=== PATIENT | female | born 1965 | race African-American/Black ===

== ENCOUNTER 2017-10-12 21:26 | Emergency (ER) | payer OTHER ==
[~2017-10-12] VITALS: Ht 162.6 cm; Wt 87.1 kg
[~2017-10-12 21:26] MED LIST: NOHOMEMEDICATIONS
[2017-10-12] MEDS ORDERED: AMLODIPINE-OLM1 EACH PO (21:38)
[2017-10-12] MEDS ORDERED: LIDODERM1 EACH TRANSDERM (21:39)
[2017-10-12 21:50] LABS: URINE BILIRUBIN NEGATIVE (Negative); URINE BLOOD NEGATIVE (Negative); URINE CLARITY CLEAR; URINE COLOR YELLOW; URINE GLUCOSE-RANDOM* NEGATIVE (Negative); URINE KETONES NEGATIVE (Negative); URINE LEUKOCYTES-REFLEX NEGATIVE (Negative); URINE NITRITE-REFLEX NEGATIVE (Negative); URINE PROTEIN (DIPSTICK) NEGATIVE (Negative); URINE SPECIFIC GRAVITY <= 1.005 (1.005-1.035); URINE UROBILINOGEN 0.2 E.U./dl (0.2-1.0)
[2017-10-12 22:51] LABS: ABSOLUTE NEUTROPHILS 3.4 thou/uL (1.4-8.2); BASOPHILS 0.6 % (0.0-2.0); EOSINOPHILS 1.7 % (0.0-3.0); HEMATOCRIT 36.2 % (37.0-47.0); HEMOGLOBIN 12.2 gm/dL (12.0-15.0); LYMPHOCYTES 37.4 % (24.0-44.0); MCHC 33.6 g/dL (28.0-37.0); MCV 86.3 fL (80.0-100.0); PLATELET COUNT 283 thou/uL (150-400); POLYS 52.3 % (36.0-66.0); RDW 13.8 % (10.5-14.5); WBC 6.5 thou/uL (4.0-11.0)
[2017-10-12 23:00] LABS: CALCIUM 8.8 mg/dL (8.5-10.1); CREATININE 0.5 mg/dL (0.6-1.0)
[2017-10-12 23:01] LABS: POTASSIUM 3.7 mmol/L (3.5-5.1)
[2017-10-12] MEDS ORDERED: MOBIC15 MG PO (23:01)
[2017-10-12 23:11] VITALS: BP 168/71
== END 2017-10-12 23:14 | disposition home or self-care (01) ==
LOC: ER 21:26
PROVIDERS: Nurse Practitioner
DX: I88.0 Nonspecific mesenteric lymphadenitis (principal); R51 Headache; R35.0 Frequency of micturition; I10 Essential (primary) hypertension; Z87.891 Personal history of nicotine dependence

== ENCOUNTER 2018-07-13 11:56 | Emergency (ER) | payer BC, OTHER ==
[~2018-07-13] VITALS: Ht 162.6 cm; Wt 69.0 kg
[~2018-07-13 11:56] MED LIST changes: +AMLODIPINE-OLM1 EACH PO; +LIDODERM1 EACH TRANSDERM; +MOBIC15 MG PO
[2018-07-13 14:48] LABS: URINE BILIRUBIN NEGATIVE (Negative); URINE BLOOD 1+ (Negative); URINE CLARITY CLEAR; URINE COLOR YELLOW; URINE GLUCOSE-RANDOM* NEGATIVE (Negative); URINE KETONES NEGATIVE (Negative); URINE LEUKOCYTES-REFLEX NEGATIVE (Negative); URINE NITRITE-REFLEX NEGATIVE (Negative); URINE PROTEIN (DIPSTICK) NEGATIVE (Negative); URINE UROBILINOGEN 0.2 E.U./dl (0.2-1.0)
[2018-07-13 14:55] LABS: CALCIUM OXALATE >10 Many /LPF (None Seen); HYALINE CASTS 0-3 Few /LPF (None Seen); SQUAMOUS None Seen /LPF (0-3)
[2018-07-13 14:56] LABS: BACTERIA-REFLEX None Seen /HPF (None Seen); URINE RBC 3-10 Few /HPF (0-2); URINE WBC-REFLEX 0-5 Rare /HPF (0-5)
[2018-07-13 15:31] LABS: HEMATOCRIT 38.3 % (37.0-47.0); HEMOGLOBIN 12.7 gm/dL (12.0-15.0); MCH 28.7 pg (26.0-34.0); RBC 4.41 mil/uL (4.20-5.00); RDW 13.8 % (10.5-14.5); WBC 4.8 thou/uL (4.0-11.0)
[2018-07-13 15:54] LABS: CALCIUM 8.7 mg/dL (8.5-10.1); CREATININE 0.6 mg/dL (0.6-1.0); POTASSIUM 3.1 mmol/L (3.5-5.1)
[2018-07-13 15:58] LABS: ALBUMIN 3.6 g/dL (3.4-5.0); TOTAL BILIRUBIN 0.4 mg/dL (<0.1-1.0); TOTAL PROTEIN 7.6 g/dL (6.4-8.2)
[2018-07-13 18:18] VITALS: BP 148/67
--- NOTE | 2018-07-14 09:18 | EKG ---
[address] [address] ELECTROCARDIOGRAM REPORT Name: HERNANDEZ SILVA [id number] ������������������ Admission: 07/13/18 ������������������ Attend Phys: Discharge: 07/13/18 ������������������ Date of : 63 Report #: [id number] ����������������������������������������������������������������� [id number] THIS REPORT FOR: //name// [facility] ED Test Date: 2018-07-13 Test Time: 13:29:28 Pat Name: HERNANDEZ SILVA Department: Room: Gender: F Foreign Service Officer: BRISEIDA : 1965 Requested By: Olive Stokes Order Number: [id number] MD: Sam Pereira Measurements Intervals [place] Rate: 55 P: 45 [place]: 171 QRS: 39 QRSD: 96 T: 50 QT: 458 QTc: 438 Interpretive Statements Sinus bradycardia with arrhythmia Normal tracing Baseline wander in lead(s) V2 Compared to ECG 08/27/2012 22:25:30 Sinus bradycardia is now present Electronically Signed On 07-14-2018 9:18:04 SENIOR LANDSCAPE ARCHITECT by Sam Pereira [email or web address] ��������������������������������������������� <ELECTRONICALLY SIGNED> ���������������������������������������� By: Sam ePreira MD, [facility] ��������������������������������������������� 07/14/1818 1329 1329 Sam Pereira MD, FAC /EPI
== END 2018-07-13 18:19 | disposition home or self-care (01) ==
LOC: ER 11:56
PROVIDERS: Student in an Organized Health Care Education/Training Program
DX: N20.0 Calculus of kidney (principal); E87.6 Hypokalemia; R42 Dizziness and giddiness; I10 Essential (primary) hypertension; Z87.891 Personal history of nicotine dependence

== ENCOUNTER 2018-08-18 20:35 | Emergency (ER) | payer BC, OTHER ==
[~2018-08-18] VITALS: Ht 165.1 cm; Wt 83.5 kg
[2018-08-18] MEDS ORDERED: BENZOPRIL (20:40)
[2018-08-18 21:10] LABS: HEMATOCRIT 36.8 % (37.0-47.0); HEMOGLOBIN 12.3 gm/dL (12.0-15.0); MCH 28.7 pg (26.0-34.0); MCHC 33.3 g/dL (28.0-37.0); RBC 4.27 mil/uL (4.20-5.00); WBC 5.6 thou/uL (4.0-11.0)
[2018-08-18 21:21] LABS: ANION GAP 7 mmol/L (7-16); BUN 19 mg/dL (7-18); CHLORIDE 103 mmol/L (98-107); CO2 29 mmol/L (21-32); CREATININE 0.6 mg/dL (0.6-1.0); GLUCOSE 111 mg/dL (74-106); POTASSIUM 3.9 mmol/L (3.5-5.1); SODIUM 139 mmol/L (136-145)
[2018-08-18 21:29] LABS: ALBUMIN 3.5 g/dL (3.4-5.0); SGOT 16 U/L (15-37); SGPT 17 U/L (30-65); TOTAL BILIRUBIN 0.1 mg/dL (<0.1-1.0); TOTAL PROTEIN 7.6 g/dL (6.4-8.2); TROPONIN-I <0.06 ng/mL (<0.06)
[2018-08-18 22:12] LABS: URINE BILIRUBIN NEGATIVE (Negative); URINE BLOOD TRACE (Negative); URINE CLARITY CLEAR; URINE COLOR YELLOW; URINE GLUCOSE-RANDOM* NEGATIVE (Negative); URINE KETONES NEGATIVE (Negative); URINE LEUKOCYTES-REFLEX TRACE (Negative); URINE NITRITE-REFLEX NEGATIVE (Negative); URINE PROTEIN (DIPSTICK) NEGATIVE (Negative); URINE SPECIFIC GRAVITY 1.015 (1.005-1.035); URINE UROBILINOGEN 0.2 E.U./dl (0.2-1.0)
[2018-08-18 23:04] VITALS: BP 142/83
--- NOTE | 2018-08-19 08:32 | EKG ---
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 : 1965 Requested By: Olive Stokes Order Number: [id number] MD: Baudilio Florez Measurements Intervals [place] Rate: 76 P: 66 [place]: 160 QRS: 61 QRSD: 95 T: 58 QT: 410 QTc: 462 Interpretive Statements Sinus rhythm Probable left ventricular hypertrophy Compared to ECG 07/13/2018 13:29:28 Sinus bradycardia no longer present Electronically Signed On 08-19-2018 8:32:22 CDT by Baudilio Florez [email or web address] ��������������������������������������������� <ELECTRONICALLY SIGNED> ���������������������������������������� By: Baudilio Florez MD ��������������������������������������������� 08/19/18 0832 2144 Baudilio Florez MD /SALUD
== END 2018-08-18 23:05 | disposition home or self-care (01) ==
LOC: ER 20:35
PROVIDERS: Student in an Organized Health Care Education/Training Program
DX: I10 Essential (primary) hypertension (principal); Z87.891 Personal history of nicotine dependence